=== PATIENT | male | born 1955 ===

== ENCOUNTER 2016-12-14 12:36 | Inpatient (IN) | payer BC ==
[~2016-12-14] VITALS: Ht 177.8 cm; Wt 64.4 kg
[2016-12-14] VITALS (182 sets, daily range): BP systolic 123–141; BP diastolic 80–115; PULSE 66–92; TEMP 98.2–98.5; O2SAT 83–100
[2016-12-14 13:14] LABS: HEMATOCRIT 46.1 % (42.0-52.0); HEMOGLOBIN 15.3 g/dl (13.5-18.0); MEAN CELL VOLUME 93 fl (80.0-100.0); MEAN CORPUSCULAR HEMOGLOBIN 31 pg (27.0-31.0); MEAN CORPUSCULAR HGB CONC 33 g/dl (33.0-37.0); MEAN PLATELET VOLUME 9.3 fl (7.4-10.4); PLATELET COUNT 343 K/mm3 (130-400); RED BLOOD COUNT 4.94 M/mm3 (4.20-5.60); REDCELL DISTRIBUTION WIDTH-CV 13.8 % (11.5-14.5); WHITE BLOOD COUNT 19.2 K/mm3 (4.8-10.8)
[2016-12-14 13:16] LABS: ADD PATHOLOGY DIFF REVIEW NO; TOTAL CELLS COUNTED 0
[2016-12-14 13:28] LABS: ADJUSTED CALCIUM 9.3 mg/dL (8.4-10.2); ALBUMIN 4.6 gm/dL (3.5-5.0); BILIRUBIN,TOTAL 1.1 mg/dL (0.0-1.0); CALCIUM 9.8 mg/dL (8.4-10.2); CREATININE, serum 0.96 mg/dL (0.66-1.25); TOTAL PROTEIN 8.4 gm/dL (6.4-8.2)
[2016-12-14 13:47] LABS: TROPONIN-I 4.41 ng/mL (0.000-0.034)
[2016-12-14 18:34] LABS: HEMATOCRIT 45.1 % (42.0-52.0); HEMOGLOBIN 15.2 g/dl (13.5-18.0); PROTHROMBIN TIME 40.9 SECONDS (9.7-12.8)
[2016-12-14 18:43] LABS: INR 3.5 (0.8-3.0)
[2016-12-14 20:21] LABS: MAGNESIUM 1.9 mg/dL (1.6-2.3)
[2016-12-14 20:36] LABS: TROPONIN-I 7.88 ng/mL (0.000-0.034)
[2016-12-15] VITALS (38 sets, daily range): BP systolic 108–135; BP diastolic 75–84; PULSE 40–90; TEMP 97.9–99.4; O2SAT 97–100
[2016-12-15 06:01] LABS: BASO # 0.1 (0.0-0.2); BASO % 0.3 % (0.0-2.0); EOS % 0.1 % (0-4.0); GRAN # 15.4 (1.4-6.5); GRAN % 79.2 % (42.2-75.2); HEMATOCRIT 46.1 % (42.0-52.0); HEMOGLOBIN 15.4 g/dl (13.5-18.0); LYMPH # 1.9 (1.2-3.4); LYMPH % 9.8 % (20.0-51.0); MEAN CELL VOLUME 93 fl (80.0-100.0); MEAN CORPUSCULAR HEMOGLOBIN 31 pg (27.0-31.0); MEAN CORPUSCULAR HGB CONC 33 g/dl (33.0-37.0); MEAN PLATELET VOLUME 9.4 fl (7.4-10.4); MONO % 10.1 % (1.7-9.3); PLATELET COUNT 309 K/mm3 (130-400); RED BLOOD COUNT 4.97 M/mm3 (4.20-5.60); REDCELL DISTRIBUTION WIDTH-CV 13.9 % (11.5-14.5); WHITE BLOOD COUNT 19.4 K/mm3 (4.8-10.8)
[2016-12-15 06:18] LABS: CALCIUM 9.4 mg/dL (8.4-10.2); CREATININE, serum 0.75 mg/dL (0.66-1.25); POTASSIUM 4.2 mmol/L (3.4-5.0)
[2016-12-15 06:30] LABS: TROPONIN-I 8.49 ng/mL (0.000-0.034)
[2016-12-15 15:59] LABS: HEMATOCRIT 43.4 % (42.0-52.0); HEMOGLOBIN 14.9 g/dl (13.5-18.0)
[2016-12-15 23:01] LABS: HEMATOCRIT 42.5 % (42.0-52.0); HEMOGLOBIN 14.5 g/dl (13.5-18.0)
[2016-12-16] VITALS (7 sets, daily range): BP systolic 101–117; BP diastolic 59–82; PULSE 63–77; TEMP 97.4–98.3
[2016-12-16] MEDS ORDERED: ASPIRIN E.C. 8181 MG PO (08:02)
[2016-12-16] MEDS ORDERED: BRILINTA90 MG PO (08:02)
[2016-12-16] MEDS ORDERED: LIPITOR 80MG80 MG PO (08:03)
[2016-12-16] MEDS ORDERED: VASOTEC 5MG5 MG/TAB PO (08:04)
[2016-12-16] MEDS ORDERED: NITROSTAT0.4 MG/TAB SL (08:04)
[2016-12-16] MEDS ORDERED: TOPROL XL100 MG PO (08:04)
== END 2016-12-16 17:14 | disposition home or self-care (01) | DRG 272 ==
LOC: COL.ER 12:36 → IMCU 14:21 → MEDICAL 14:21 → ICU 17:45 → MEDICAL 12-15 09:53
PROVIDERS: Emergency Medicine; Internal Medicine Cardiovascular Disease; Physician Assistant
PROC: 03C Upper Arteries, Extirpation (ICD-10-PCS; principal; 2016-12-14)
PROC: 0271366 Dilation of Coronary Artery, Two Arteries, Bifurcation, with Three Drug-eluting Intraluminal Devices, Percutaneous Approach (ICD-10-PCS; 2016-12-14)
PROC: B2151ZZ Fluoroscopy of Left Heart using Low Osmolar Contrast (ICD-10-PCS; 2016-12-14)
PROC: B2111ZZ Fluoroscopy of Multiple Coronary Arteries using Low Osmolar Contrast (ICD-10-PCS; 2016-12-14)
DX: I21.4 Non-ST elevation (NSTEMI) myocardial infarction (principal); I10 Essential (primary) hypertension; E78.5 Hyperlipidemia, unspecified; Z82.49 Family history of ischemic heart disease and other diseases of the circulatory system
CPT/HCPCS: 99222-AI; 99232-AI; 99239; C1725; C1757; C1760; C1769; C1874; C1887; C1894; C9600; C9601; J0583; J2250; J3010; J7030; Q9967